=== PATIENT | female | born 1995 | race Caucasian/White ===

== ENCOUNTER 2018-01-18 08:01 | Outpatient (RCR) | payer MEDICAID, SELFPAY | END 2018-01-23 23:59 | LOC: NS 08:01 | DX: E66.8 Other obesity (principal); Z68.41 Body mass index [BMI] 40.0-44.9, adult; Z71.3 Dietary counseling and surveillance | CPT/HCPCS: 97802 ==

== ENCOUNTER 2018-02-08 11:49 | Outpatient (RCR) | payer MEDICAID, SELFPAY | END 2018-02-23 23:59 | LOC: NS 11:49 | DX: E66.8 Other obesity (principal); Z68.41 Body mass index [BMI] 40.0-44.9, adult; Z71.3 Dietary counseling and surveillance | CPT/HCPCS: 97803 ==

== ENCOUNTER 2018-03-01 10:11 | Outpatient (RCR) | payer MEDICAID, SELFPAY | END 2018-03-01 10:12 | disposition home or self-care (01) | LOC: NS 10:11 | DX: E66.8 Other obesity (principal); Z68.41 Body mass index [BMI] 40.0-44.9, adult; Z71.3 Dietary counseling and surveillance | CPT/HCPCS: 97803 ==

== ENCOUNTER 2019-05-29 11:57 | Emergency (ER) | payer MEDICAID, SELFPAY ==
[2019-05-29 11:58] VITALS: BP 122/71; PULSE 109; RESP 18; TEMP 36.8; O2SAT 96; BMI 44.2
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
[2019-05-29] MEDS: Ondansetron 4 MG/2 ML Vial IV (12:38)
[2019-05-29] MEDS: Ketorolac 15 MG/ML Vial IV (12:39)
[2019-05-29 12:59] LABS: Absolute Lymphocyte Count 4.53 X10^3/ul (0.83-4.51); Absolute Neutrophil Count 7.4 X10^3/uL (2.0-7.7); Anion Gap 6 (5-15); BUN 13 mg/dL (7-18); BUN/Creat Ratio 16.9 RATIO (10-20); Basophil# 0.05 X10^3/uL; Basophil% 0.4 % (0-1); Calcium,Total 9.1 mg/dL (8.5-10.1); Chloride 109 mmol/L (98-107); Creatinine, Serum 0.77 mg/dL (0.55-1.02); Differential Indicated SCAN CRITERIA MET; EST Glomerular Filtration Rate 99 mL/min (>60); Eosinophil# 0.39 X10^3/uL; Eosinophils% 2.8 % (0-5); Est Glom Filt Rate - Afr Amer 119 mL/min (>60); Glucose 95 mg/dL (74-106); Hemoglobin 14.5 g/dl (12.0-15.0); Lymphocyte # 4.53 X10^3/ul (4.0); Mean Corp Hgb Conc 33.7 g/gl (32-36); Mean Corpuscular Hgb 29.2 pg (27.0-32.0); Mean Corpuscular Volume 86.5 fL (81-99); Mean Platelet Vol. 9.9 fl (6.2-12.0); Monocyte# 1.24 X10^3/uL; Neutrophil # 7.44 X10^3/uL (2.7-7.7); Neutrophil % 54.2 % (47-70); POSITIVE COUNT NO; POSITIVE DIFFERENTIAL NO; POSITIVE MORPHOLOGY YES; Platelet Count 297 K/mm3 (150-450); Potassium 4.2 mmol/L (3.5-5.1); RBC Distribution Width CV 13.3 % (11.6-14.6); RBC Distribution Width SD 42.5 fl (35.1-43.9); Red Blood Count 4.97 M/mm3 (4.2-5.4); Sodium Level 139 mmol/L (136-145); White Blood Count 13.7 K/mm3 (4.4-11.0)
[2019-05-29 13:10] LABS: Differential Comment SCANNED; Reactive Lymphocyte 1+
[2019-05-29 13:43] LABS: Bacteria 0 SEEN /hpf (None Seen); Mucous, Urine 0 SEEN /hpf (<or=2+); Red Blood Cells-Urine 0 SEEN /hpf (0-5); White Blood Cells 0 SEEN /hpf (0-5)
[2019-05-29 13:47] LABS: Color, Urine Yellow (Yellow); Glucose, Dipstick Normal (Normal); Ketone-Dipstick Negative (Negative); Leukocyte Esterase-Dipstick 25 /ul (Negative); Nitrite-Dipstick Negative (Negative); Occult Blood-Urine Negative /ul (Negative); Protein-Dipstick Negative (Negative); Urine Bilirubin Dipstick Negative (Negative); Urine Clarity Clear (Clear); Urine Urobilinogen Normal (Normal)
[2019-05-29] MEDS: Ondansetron ODT 4 MG Tablet PO (13:54)
[2019-05-29 13:55] LABS: Squamous Epithelial Cells - UA 5-10 SEEN /hpf (5-10)
== END 2019-05-29 14:08 | disposition home or self-care (01) ==
PROVIDERS: Emergency Provider Emergency Medicine; Family Provider Internal Medicine; PCP Internal Medicine
DX: M54.5 Low back pain (principal); F17.200 Nicotine dependence, unspecified, uncomplicated
CPT/HCPCS: 80048; 81001; 85025; 96374; 96375; 96376; 99284; A4216; J2405